=== PATIENT | female | born 1995 ===

== ENCOUNTER → 2016-07-29 13:43 | Outpatient (CLI) | payer BC ==
[2016-07-29 14:45] LABS: APPEARANCE CLEAR (CLEAR); BACTERIA MANY /hpf (NONE SEEN); BILIRUBIN NEGATIVE (NEGATIVE); COLOR YELLOW (YELLOW); EPITHELIAL CELLS 0-5 /hpf (0-5); GLUCOSE NEGATIVE (NEGATIVE); KETONE SMALL mg/dL (NEGATIVE); LEUKOCYTE ESTERASE TRACE (NEGATIVE); MUCUS <1+ /lpf (NONE SEEN); NITRITE NEGATIVE (NEGATIVE); PROTEIN NEGATIVE (NEGATIVE); RED CELLS - URINE 0-5 /hpf (0-5); UROBILINOGEN NORMAL (NORMAL); WHITE CELLS - URINE 0-5 /hpf (0-5)
== END | disposition home or self-care (01) ==
LOC: D.LDO 13:43
PROVIDERS: Obstetrics & Gynecology
DX: O26.899 Other specified pregnancy related conditions, unspecified trimester (principal); R10.9 Unspecified abdominal pain; O36.8190 Decreased fetal movements, unspecified trimester, not applicable or unspecified; M54.9 Dorsalgia, unspecified; M25.552 Pain in left hip; M25.551 Pain in right hip